=== PATIENT | female | born 1955 | race Caucasian/White ===

== ENCOUNTER 2016-11-15 19:17 | Emergency (ER) | payer BC ==
[2016-11-15 19:56] VITALS: BP 137/73; PULSE 82; RESP 18; TEMP 97.3; O2SAT 92
--- NOTE | 2016-11-15 21:29 | UCPHY ---
H & P Time Seen by Provider: 11/15/16 21:14 Patient Type: New HPI/ROS: CHIEF COMPLAINT: I have hives HISTORY OF PRESENT ILLNESS: Patient is a 61-year-old female who presents to the emergency department after developing hives yesterday. Patient states she had a recent UTI and finished a course of sulfa antibiotics on Tuesday. She developed a hives yesterday primarily on her arms. It is now spread to her chest and back. She describes it as itchy. She has no pharyngeal or mouth involvement. No shortness of breath or cough. No fevers or chills. REVIEW OF SYSTEMS: My complete review of systems is negative except as mentioned in the HPI. Past Medical/Surgical History: Includes UTI Smoking Status: Former smoker Physical Exam: Vitals noted GENERAL: Well-appearing, in no acute distress, alert. HEENT: Eyes normal to inspection, normal pharynx with no swelling, no signs of dehydration. NECK: No thyromegaly, no lymphadenopathy, supple. RESPIRATORY: Clear to auscultation bilaterally, no rales, rhonchi or wheezing. CVS: Regular rate and rhythm, no rubs, murmurs, or gallops. ABDOMEN: Soft, nontender, nondistended, no organomegaly. BACK: Normal to inspection, no CVA tenderness. SKIN: patient has scattered hives on bilateral forearms. She also has hives on her chest and back.. EXTREMITIES: No pedal edema, no joint swelling. NEURO/PSYCH: Alert and oriented, normal mood and affect Constitutional: Initial Vital Signs Temperature (C) 36.3 C 11/15/16 19:52 Heart Rate 82 11/15/16 19:52 Respiratory Rate 18 11/15/16 19:52 Blood Pressure 137/73 H 11/15/16 19:52 O2 Sat (%) 92 11/15/16 19:52 O2 Delivery Mode Room Air Allergies/Adverse Reactions: acetaminophen [From Vicodin] Allergy (Intermediate, Verified 07/07/11 13:43) DRY HEAVES/ALMOST PASSED OUT hydrocodone bitartrate [From Vicodin] Allergy (Intermediate, Verified 07/07/11 13:43) DRY HEAVES/ALMOST PASSED OUT Home Medications: Medication Instructions Recorded LEVOTHYROXINE SODIUM [Synthroid] 75 mcg PO 01/12/11 Famotidine [Pepcid 20 MG (*)] 20 mg PO BID #10 tab 11/15/16 predniSONE 20 mg PO DAILY 4 Days 11/15/16 Medical Decision Making ED Course/Re-evaluation: I discussed possible etiologies with the patient. I discussed the potential of reaction to sulfa antibiotics. The patient was given prednisone 60 mg orally and Pepcid 20 mg orally. She was given prescriptions for both Pepcid and prednisone. She was given instructions on Benadryl use. She will return with worsening symptoms. She was given warnings prior to leaving. Differential Diagnosis: My differential includes but is not limited to medication reaction, hives, allergic reaction, anaphylaxis, malignancy Departure - Departure Disposition: Home, Routine, Self-Care Clinical Impression: Urticaria Condition: Good Instructions: Urticaria (ED) Additional Instructions: Take 1-2 tablets of Benadryl every 6 hours. Take your Pepcid and prednisone as directed. Return with increasing swelling, rash, shortness of breath or any other concerns. Referrals: Alice Hancock MD [Primary Care Provider] - 1-2 days without fail Prescriptions: Famotidine [Pepcid 20 MG (*)] 20 mg PO BID #10 tab predniSONE 20 mg PO DAILY 4 Days - PQRS PQRS Measurement: My PQRS negative my PQRS negative my PQRS negative my PQRS negative 134: Depression screening and followup, PRIME DENT-PHQ2 (12 years and older) Over the last 2 weeks, how often have you been bothered by any of the following problems? 1. Feeling down, depressed, or hopeless? 2. Little interest or pleasure in doing things? Patient answered no to both 1 and 2 130: Documentation of medications. Reviewed all patient medications, doses, route and frequency. 226: Do you smoke? No.
[2016-11-15] MEDS ORDERED: FAMOTIDINE 20 MG TAB PO ONE (21:30)
[2016-11-15] MEDS ORDERED: predniSONE 20 MG TAB PO ONE (21:30)
== END 2016-11-15 21:46 | disposition home or self-care (01) ==
LOC: CED 19:17
DX: L50.9 Urticaria, unspecified (principal); Z87.891 Personal history of nicotine dependence
CPT/HCPCS: 99203-PO; G0463-PO

== ENCOUNTER → 2016-11-23 | Outpatient (CLI) | payer BC ==
--- NOTE | 2016-11-23 11:20 | MA ---
Screening Digital Mammogram With iCAD Analysis Clinical Indications: Routine screening. Her mother was diagnosed with breast cancer initially in he r 70s and again in her 90s. The patient has had a benign left breast stereotactic biopsy. Technique: Standard cephalocaudal projections are obtained. Digital breast tomosynthesis was perform ed in the MLO projection with reconstruction at 1.0 mm slice thickness and composite MLO views recon structed. This examination is processed by the iCAD computer aided detection system. Comparison: November 2015, October 2014, October 2013, October 2012, October 2011, October 2010, Oct. Breast density: Type C: Heterogeneously dense. Findings: CAD was reviewed. No masses, suspicious calcifications or secondary signs of malignancy ar e seen. There has been no significant change in the appearance of either breast. Impression: Negative mammogram. BI-RADS 1. Recommendation: Routine mammographic screening in one year as long as physical examination is negati ve in this patient with heterogeneously dense breast parenchyma. [facility] will send a result letter to the patient. Negative mammography should not preclude additional workup of a clinically suspicious finding. The patient's information is entered into a reminder system with a target due date for her next mamm ogram.
== END ==
LOC: FIMAGING 08:19
DX: Z12.31 Encounter for screening mammogram for malignant neoplasm of breast (principal); Z80.3 Family history of malignant neoplasm of breast
CPT/HCPCS: G0202

== ENCOUNTER → 2017-11-24 | Outpatient (CLI) | payer BC | LOC: FIMAGING 08:32 | PROVIDERS: ATTEND Obstetrics & Gynecology Gynecology | DX: Z12.31 Encounter for screening mammogram for malignant neoplasm of breast (principal); Z80.3 Family history of malignant neoplasm of breast ==

== ENCOUNTER → 2018-07-20 | Outpatient (CLI) | payer BC | LOC: FIMAGING 14:36 | PROVIDERS: ATTEND Obstetrics & Gynecology Gynecology | DX: N64.4 Mastodynia (principal) ==

== ENCOUNTER → 2018-12-07 | Outpatient (CLI) | payer BC | LOC: FIMAGING 08:26 | PROVIDERS: ATTEND Obstetrics & Gynecology Gynecology | DX: Z12.31 Encounter for screening mammogram for malignant neoplasm of breast (principal); Z80.3 Family history of malignant neoplasm of breast ==